=== PATIENT | female | born 1975 | race Caucasian/White ===

== ENCOUNTER 2016-09-22 09:04 | Observation (INO) | payer OTHER ==
[2016-09-22 09:16] VITALS: RESP 16
[2016-09-22 09:26] VITALS: BMI 25.4
--- NOTE | 2016-09-22 10:14 | ED PDOC ---
HPI: Abdomen Time Seen by Provider: 09/22/16 09:10 Chief Complaint (Nursing): Abdominal Pain Chief Complaint (Provider): Abdominal Pain History Per: Patient History/Exam Limitations: no limitations Onset/Duration Of Symptoms: Hrs (morning of arrival ) Additional Complaint(s): Monisha Driver, 41 year old female presents to the ED for abdominal pain localized to her suprapubic region occurring since 6:00 AM this morning. The patient states her last menstrual period began yesterday morning and the pain was unbearable which prompted her to visit the ED. . She denies fever, vomiting, or any problems urinating. The patient has taken 2 tablets of Advil, 400 mg, at 6 AM this morning. PMD: Savi Falk MD Past Medical History Reviewed: Historical Data, Nursing Documentation, Vital Signs Vital Signs: Last Vital Signs Temp 97.8 F 09/22/16 15:00 Pulse 85 09/22/16 15:00 Resp 16 09/22/16 15:00 BP 102/65 09/22/16 15:00 Pulse Ox 100 09/22/16 15:00 - Medical History PMH: Anemia Denies: Chronic Kidney Disease - Surgical History Surgical History: - Family History Family History: States: Unknown Family Hx - Social History Current smoker - smoking cessation education provided: No Ex-Smoker (has not smoked in the last 12 months): No Alcohol: None Drugs: Denies - Home Medications Home Medications: Ambulatory Orders Medication Instructions Recorded Amoxicillin/Clavulanate [Augmentin 1 tab PO BID #20 tab 04/17/16 875 MG-125 MG] Chlorhexidine 0.12% [Peridex] 15 ml MM Q6 #1 bottle 04/17/16 oxyCODONE/Acetaminophen [Percocet 1 ea PO Q6 PRN #10 tab 04/17/16 5/325 mg Tab] - Allergies Allergies/Adverse Reactions: Allergies Allergy/AdvReac Type Severity Reaction Status Date / Time No Known Allergies Allergy Verified 04/17/16 09:33 Review of Systems Constitutional: Negative for: Fever Gastrointestinal: Positive for: Abdominal Pain (localized to suprapubic region) . Negative for: Vomiting Genitourinary Female: Negative for: Other (no genitourinary problems) Physical Exam - Reviewed Nursing Documentation Reviewed: Yes Vital Signs Reviewed: Yes - Physical Exam Appears: Positive for: Well, Non-toxic, No Acute Distress Head Exam: Positive for: ATRAUMATIC, NORMAL INSPECTION, NORMOCEPHALIC Skin: Positive for: Normal Color, Warm, DRY Neck: Positive for: Normal, Painless ROM Cardiovascular/Chest: Positive for: Regular Rate, Rhythm Respiratory: Positive for: CNT, Normal Breath Sounds Gastrointestinal/Abdominal: Positive for: Soft, Tenderness (suprapubic tenderness ) Back: Positive for: Normal Inspection Extremity: Positive for: Normal ROM Neurologic/Psych: Positive for: Alert, Oriented - Laboratory Results Result Diagrams: 09/22/16 10:26 09/22/16 10:26 - ECG O2 Sat by Pulse Oximetry: 96 (RA) Pulse Ox Interpretation: Normal Medical Decision Making Medical Decision Making: Impression: Abdominal Pain/suprapubic pain rule out UTI vs ovarian cyst Plan: * Beta-HCG, Quantitative Stat * COMP Metabolic Panel Stat * CBC (With Differential) Stat * US Transvaginal Stat * Obs * Admit to Hospital Routine * Reevaluation - See Obvs Note Scribe Attestation: Documented by Madisyn Gerber, acting as a scribe for Dano Arriaza MD. Provider Scribe Attestation: All medical record entries made by the Scribe were at my direction and personally dictated by me. I have reviewed the chart and agree that the record accurately reflects my personal performance of the history, physical exam, medical decision making, and the department course for this patient. I have also personally directed, reviewed, and agree with the discharge instructions and disposition. ED OBSERVATION Date of observation admission: 09/22/16 Time of observation admission: 09:43 - Observation admission statement Patient is being placed in observation because:: Time-extensive ED Evaluation - Goals of Observation Goals of observation are:: Results of ED workup and eventual disposition. - Progress Note Progress Note: 09/22/16 11:15 US Report: FINDINGS: UTERUS: Measures 9.7 x 4.3 x 7.8 cm. Therefore discrete uterine fibroids identified. Largest right posterior, 2.8 x 3.0 x 3.2 cm. There is a left anterior fibroid, 1.3 x 1.8 x 2.3 cm. Additional smaller fibroids are demonstrated. ENDOMETRIUM: Measures 10 mm in diameter. Unremarkable. CERVIX: No cervical abnormality identified. RIGHT OVARY: Measures 3.6 x 2.4 x 3.4 cm. No solid mass. Normal flow. Complex cyst with an internal septation and low-level internal echoes, measuring 1.7 x 2.7 x 2.9 cm. There is a nonspecific 3 mm non shadowing echogenic focus seen in the right ovary. LEFT OVARY: Measures 7.1 x 5.0 x 6.6 cm. No solid mass. Normal flow. Complex cyst with homogeneous low-level echoes measuring 5.0 x 4.4 x 5.2 cm, possibly hemorrhagic cyst. Followup transvaginal pelvic ultrasound examination is advised in 6-8 weeks. FREE FLUID: No significant free fluid noted. OTHER FINDINGS: None. IMPRESSION: Bilateral complex ovarian cysts, 2.9 cm on the right and 5.2 cm on the left. Recommend followup transvaginal pelvic ultrasound examination in 6-8 weeks. Multiple uterine fibroids, largest 3.2 cm. 09/22/16 12:46 Patient's vitals are stable pt aware of US results pts states she feels better. pending urine 09/22/16 14:11 Patient's vitals are stable pending urine 09/22/16 14:55 Urine results are negative for infection. The patient states she does not feel pain currently, and she feels better. The patient is aware of her ultrasound results. Discussed with patient to follow up [facility] as an outpatient. Patient agreed to treatment plan. 09/22/16 16:27 Disposition - Clinical Impression Clinical Impression: Ovarian cyst, Fibroids - Patient ED Disposition Is Patient to be Admitted: No Counseled Patient/Family Regarding: Studies Performed, Diagnosis, Need For Followup - Disposition Disposition: Routine/Home Disposition Time: 14:56 Condition: IMPROVED
[2016-09-22 10:36] LABS: BASO % 0.3 % (0.0-2.0); EOS # 0.1 K/uL (0.0-0.7); EOS % 0.5 % (0.0-4.0); HEMOGLOBIN 11.6 g/dL (12.0-16.0); LYMPH # 1.3 K/uL (1.0-4.3); MEAN CELL VOLUME 86.4 fl (81.0-99.0); MEAN CORPUSCULAR HEMOGLOBIN 28.1 pg (27.0-31.0); MEAN CORPUSCULAR HGB CONC 32.5 g/dL (33.0-37.0); MONO % 8.1 % (0.0-10.0); NEUT # 10.3 K/uL (1.8-7.0); NEUT % 81.1 % (50.0-75.0); RBC 4.14 Mil/uL (3.80-5.20); RED CELL DISTRIBUTION WIDTH 13.5 % (11.5-14.5); WHITE BLOOD COUNT 12.7 K/uL (4.8-10.8)
[2016-09-22 11:02] LABS: ALB/GLOB RATIO 1.4 (1.0-2.1); ALT/SGPT 41 U/L (9-52); AST/SGOT 27 U/L (14-36); BLOOD UREA NITROGEN 13 mg/dl (7-17); CALCIUM 8.9 mg/dL (8.4-10.2); GFR AFRICAN-AMERICAN > 60; GFR NON-AFRICAN AMERICAN > 60
--- NOTE | 2016-09-22 11:14 | US ---
HISTORY: pelvic pain COMPARISON: None available. TECHNIQUE: Transvaginal FINDINGS: UTERUS: Measures 9.7 x 4.3 x 7.8 cm. Therefore discrete uterine fibroids identified. Largest right posterior, 2.8 x 3.0 x 3.2 cm. There is a left anterior fibroid, 1.3 x 1.8 x 2.3 cm. Additional smaller fibroids are demonstrated. ENDOMETRIUM: Measures 10 mm in diameter. Unremarkable. CERVIX: No cervical abnormality identified. RIGHT OVARY: Measures 3.6 x 2.4 x 3.4 cm. No solid mass. Normal flow. Complex cyst with an internal septation and low-level internal echoes, measuring 1.7 x 2.7 x 2.9 cm. There is a nonspecific 3 mm non shadowing echogenic focus seen in the right ovary. LEFT OVARY: Measures 7.1 x 5.0 x 6.6 cm. No solid mass. Normal flow. Complex cyst with homogeneous low-level echoes measuring 5.0 x 4.4 x 5.2 cm, possibly hemorrhagic cyst. Followup transvaginal pelvic ultrasound examination is advised in 6-8 weeks. FREE FLUID: No significant free fluid noted. OTHER FINDINGS: None. IMPRESSION: Bilateral complex ovarian cysts, 2.9 cm on the right and 5.2 cm on the left. Recommend followup transvaginal pelvic ultrasound examination in 6-8 weeks. Multiple uterine fibroids, largest 3.2 cm.
[2016-09-22 14:46] LABS: SQUAMOUS EPITHIAL 1 /hpf (0-5); URINE BACTERIA RARE (<OCC); URINE BILIRUBIN NEGATIVE (NEGATIVE); URINE BLOOD LARGE (NEGATIVE); URINE CLARITY SLIGHTY-CLOUDY (Clear); URINE COLOR YELLOW (YELLOW); URINE GLUCOSE (UA) NEG (Normal); URINE LEUKOCYTE ESTERASE NEG Leu/uL (Negative); URINE NITRATE NEGATIVE (NEGATIVE); URINE PROTEIN NEGATIVE (NEGATIVE); URINE UROBILINOGEN 0.2-1.0 mg/dL (0.2-1.0)
[2016-09-22 15:34] VITALS: BP 102/65; PULSE 85; TEMP 97.8
[2016-09-22 16:28] VITALS: O2SAT 96
== END 2016-09-22 15:32 | disposition home or self-care (01) ==
LOC: H.ER 09:04 → H.EROBSV 09:43
PROVIDERS: ADMIT Emergency Medicine; ATTEND Emergency Medicine
DX: D25.9 Leiomyoma of uterus, unspecified (principal); N83.209 Unspecified ovarian cyst, unspecified side